=== PATIENT | female | born 1995 | race African-American/Black ===

== ENCOUNTER 2018-06-19 06:37 | Emergency (ER) | payer OTHER ==
[~2018-06-19] VITALS: Ht 157.5 cm; Wt 61.2 kg
[~2018-06-19 06:37] MED LIST: ACYCLOVIR 200200 MG PO; AMOXIL 875 MG875 M1 PO; CIPRO500 MG PO; ZOFRAN4 MG PO
[2018-06-19 06:46] VITALS: BP 149/83
[2018-06-19] MEDS ORDERED: PENICILLIN VK500 MG PO (06:51)
[2018-06-19] MEDS ORDERED: HYDROCODON-ACE1 EAC7 PO (06:51)
== END 2018-06-19 06:55 | disposition home or self-care (01) ==
LOC: M.ERS 06:37
DX: K04.7 Periapical abscess without sinus (principal); F17.210 Nicotine dependence, cigarettes, uncomplicated

== ENCOUNTER 2018-12-22 12:05 | Emergency (ER) | payer OTHER ==
[~2018-12-22] VITALS: Ht 154.9 cm; Wt 65.8 kg
[~2018-12-22 12:05] MED LIST changes: +HYDROCODON-ACE1 EAC7 PO; +PENICILLIN VK500 MG PO
[2018-12-22] MEDS ORDERED: ACETAMINOPHEN-1 EAC1 PO (13:58)
[2018-12-22 14:06] VITALS: BP 115/70
== END 2018-12-22 14:06 | disposition home or self-care (01) ==
LOC: M.ERS 12:05
DX: J06.9 Acute upper respiratory infection, unspecified (principal); F17.210 Nicotine dependence, cigarettes, uncomplicated